=== PATIENT | female | born 1990 | race African-American/Black ===

== ENCOUNTER 2019-06-06 03:28 | Emergency (ER) | payer MEDICAID ==
[~2019-06-06] VITALS: Ht 170.2 cm; Wt 61.0 kg
[2019-06-06] MEDS ORDERED: MORPHINE SULFATE 4 MG/ML CPJ (NOT FOR IM USE) IV STA (06:10)
[2019-06-06 06:40] LABS: CHLORIDE 109 mEq/L (98-107)
[2019-06-06 06:43] LABS: HCG SCREEN NEGATIVE
[2019-06-06 06:49] LABS: BASOPHILS % 0.2 % (0.0-2.0); EOSINOPHILS % 1.2 % (0.0-5.0); HEMATOCRIT. 41.7 % (36.0-48.0); HEMOGLOBIN. 14.3 g/dL (12.0-16.0); LYMPHOCYTES % 16.5 % (20.0-50.0); MEAN CORPUSCULAR HEMOGLOBIN 31.1 pg (28.0-32.0); MEAN CORPUSCULAR VOLUME 90.4 fL (81.0-99.0); MEAN PLATELET VOLUME 9.2 fl (7.4-10.4); MONOCYTES % 8.1 % (2.0-8.0); PLATELET 244 x1000/uL (130-400); RED BLOOD CELL COUNT 4.61 mill/uL (4.2-5.4); RED CELL DISTRIBUTION WIDTH 17.2 % (11.6-14.6)
[2019-06-06 07:31] VITALS: BP 115/70
== END 2019-06-06 07:54 | disposition home or self-care (01) ==
LOC: ER 03:28
DX: S02.32XA Fracture of orbital floor, left side, initial encounter for closed fracture (principal); S02.2XXA Fracture of nasal bones, initial encounter for closed fracture; X58.XXXA Exposure to other specified factors, initial encounter; Y93.89 Activity, other specified; Y92.018 Other place in single-family (private) house as the place of occurrence of the external cause
CPT/HCPCS: 36415; 70486; 80053; 81025; 84703; 85025; 96374; 99284; J2270; J7040; J7042; Z7610